=== PATIENT | female | born 2000 | race Caucasian/White ===

== ENCOUNTER 2020-09-20 02:34 | Outpatient (CLI) | payer OTHER, SELFPAY ==
[2020-09-20 19:16] LABS: SARS-CoV-2 RNA PCR Negative
== END 2020-09-20 02:35 | disposition home or self-care (01) ==
LOC: ANHCOVIDDT 02:34
PROVIDERS: Visit Provider Surgery Plastic and Reconstructive Surgery
DX: Z01.818 Encounter for other preprocedural examination (principal); Z20.828 Contact with and (suspected) exposure to other viral communicable diseases; N64.82 Hypoplasia of breast
CPT/HCPCS: 87635; C9803; U0003

== ENCOUNTER 2020-09-23 07:18 | Day surgery (SDC) | payer OTHER, SELFPAY ==
[2020-09-12 11:50] VITALS: BMI 21.7
[2020-09-23 07:33] VITALS: BMI 20.9
[2020-09-23 07:44] VITALS: BP 108/66; PULSE 64; RESP 16; TEMP 37.1; O2SAT 99
--- NOTE | 2020-09-23 07:49 | WPDANESEPPF ---
Anes - Initial Pre Proc Eval Procedure: Operation Date: 09/23/20 09:00 Proposed Procedures p Bilateral Breast Augmentation Mammoplasty - Ever Croft MD Date/Time: 09/23/20 07:49 Surgeon: Ever Croft MD Pre Op Diagnosis: Micromastia Patient Data Age: 19 Gender: F Height: 5 ft 8 in Weight: 62.45 kg Allergies Allergy/AdvReac Type Severity Reaction Status Date / Time No Known Allergies Allergy Verified 09/23/20 07:31 Home Medications Medication Instructions Recorded Confirmed Type docusate sodium 100 mg capsule 100 mg PO DAILY #14 cap 09/12/20 Rx ondansetron HCl 4 mg tablet 4 mg PO Q8H #28 tablet 09/12/20 Rx carisoprodol 350 mg tablet 350 mg PO TID PRN #21 tablet 09/13/20 09/13/20 Rx oxycodone-acetaminophen 5 mg-325 1 tablet PO Q6H PRN #15 tablet 09/13/20 09/13/20 Rx mg tablet Patient hx anesthesia problems: none Family hx anesthesia problems: none PMFSH Social History Social History Smoking status: Current every day smoker Tobacco type: e-cigarettes/vaping Second hand tobacco smoke exposure: No Alcohol intake: current Alcohol use details: socially every weekend Substance use: never Substance use type: does not use Living arrangements: with family Spiritual care concerns: No Anes - Eval Final PreProcedure Day of Procedure 09/23/20 07:49 Patient weight: normal Heart: regular rate and rhythm Lungs: clear to auscultation Airway: Mallampati scale class 1 Neurological: alert and oriented Last oral intake: >/= 8 hours ASA classification: II Emergent: no Anesthetic plan: proceed Anesthesia type and monitoring: general LMA and standard monitoring Informed Consent: The patient's anesthetic plan and its attendant risks and benefits were discussed with the patient/family/POA. Questions were solicited and answers provided to the satisfaction of the patient/family/POA.
--- NOTE | 2020-09-23 08:09 | WPDHPUPDATE1 ---
History and Physical Update Update Date/Time: 09/23/20 08:09 History and Physical has been reviewed, including an updated exam of the patient. There are NO changes in the patient's condition. Risks, benefits, and alternatives have been discussed and questions answered. Patient agrees to proceed with procedure.
[2020-09-23] MEDS: LACTATED RINGERS 1,000 ML 30 ML IV CONT ×2 (08:10→09:25)
[2020-09-23] MEDS: SCOPOLAMINE 1.5 MG PATCH TRANSDERM (08:11)
--- NOTE | 2020-09-23 08:15 | PM.PROC ---
Procedure Note - Detailed Date of procedure: 09/23/20 Pre-op diagnosis: Micromastia Post-op diagnosis: same Procedure performed: Bilateral augmentation mammaplasty Description of procedure: She is here today for bilateral breast augmentation. Previously and again today the risks, benefits, alternatives were discussed in extensive detail. I wanted her to be very realistic about the risks involved as well as expectations. We discussed aftercare and what to monitor for. Made sure answered all of her questions to her satisfaction today and consent was obtained. Marked in the preoperative holding area with their verification. The patient was taken to the operating room placed supine on the operating table. Anesthesia was provided by anesthesiology. A surgical time-out was taken. We cleansed the skin and 1% lidocaine and 0.25% Marcaine with epinephrine was used anesthetize as a field block. She was prepped and draped in a standard sterile fashion. Tegaderm nipple Roy were placed. A 15 blade used to make an incision along the inframammary fold. Dissection was continued at 45 degree angle until the chest wall as identified. I incised the pectoralis major along its inferior border and completely released the inferior border leaving the medial border intact. I created a subpectoral pocket in the appropriate dimensions based on our preoperative planning for the implant. I then copiously irrigated with saline solution and verified a strict hemostasis. Next the use a triple antibiotic and Betadine containing solution to irrigate the pocket. I washed my gloves with the triple antibiotic and Betadine solution. We washed the implant immediately upon opening it with this solution and only opened it when we needed it. I used implant funnel and no-touch technique. The implant was introduced into the pocket using the funnel. Having verified positioning of the implant this was closed using 2-0 Vicryl followed by 3-0 Monocryl in a running subcuticular 4-0 Monocryl followed by tissue glue. Fluffs, Mikal wrap, and surgical bra were placed. Patient was awoke and taken to PACU without difficulty. All instrument sponge counts were correct at the end of the case. Anesthesia: GLMA Surgeon: Ever Croft MD Estimated blood loss (mL): 10 Drains: No Packing: No Pathology: none sent Complications: No immediate complications Condition: stable Disposition: PACU Findings: Bilateral Annleise Cardonaira SoftTouch Dual Plane 1 Right REF [facility]-330 SN [id number] Left REF [facility]-330 SN [id number]
[2020-09-23] MEDS: ceFAZolin SODIUM 2 GM/20 ML SW SYRINGE IV PUSH (08:24)
[2020-09-23] MEDS: LIDO 1%/EPINEPHRINE 1:100,000 20 ML VIAL INFILTRATE (08:46)
[2020-09-23 09:27] VITALS: BP 150/95; PULSE 98; RESP 21; TEMP 36.2; O2SAT 100
[2020-09-23 09:41] VITALS: BP 121/85; PULSE 80; RESP 16; O2SAT 100
[2020-09-23] MEDS: fentaNYL CITRATE INJ (*CRX) 100 MCG/2 ML VIAL 25 MCG IV PUSH (09:50)
[2020-09-23 09:54] VITALS: BP 126/89; PULSE 86; RESP 18; O2SAT 100
[2020-09-23 10:05] VITALS: BP 117/103; PULSE 65; RESP 12; O2SAT 100
--- NOTE | 2020-09-23 10:11 | WPDANESPN ---
Anes - Prog Note Post-Op Date/Time: 09/23/20 10:11 Cardiovascular status: normal Respiratory status: normal Airway patency: baseline Mental status: baseline Post-Op hydration status: normal Vital Signs: Last Vital Signs Temp 36.2 C L 09/23/20 09:27 Pulse 65 09/23/20 10:05 Resp 12 09/23/20 10:05 BP 117/103 H 09/23/20 10:05 Pulse Ox 100 09/23/20 10:05 Pain Score (VAS): 3/10 Post-procedural complaints: none Patient Feedback: Patient awake, alert, verbalizes well, tolerating PO, VSS, describes soreness but not pain. She is satisfied with anesthetic care.
[2020-09-23 10:19] VITALS: BP 112/85; PULSE 62; RESP 18; TEMP 36.4; O2SAT 98
== END 2020-09-23 10:40 | disposition home or self-care (01) ==
PROVIDERS: Visit Provider Surgery Plastic and Reconstructive Surgery
PROC: (CPT 19325; principal; 2020-09-23 09:00)
DX: N64.82 Hypoplasia of breast (principal)
CPT/HCPCS: 19325

== ENCOUNTER 2023-01-10 18:29 | Emergency (ER) | payer OTHER, BC, SELFPAY ==
--- NOTE | 2023-01-10 19:19 | ED.FALL ---
HPI - Fall General Chief Complaint: Fall Stated Complaint: fall,cheek bone,knee and jenkins pain Time Seen by Provider: 01/10/23 19:15 Source: patient Mode of arrival: ambulatory Limitations: no limitations History of Present Illness HPI Narrative: Dahlia is a 22-year-old female patient presenting to the clinic today with complaints of a fall at work yesterday. She reports that she slipped on some water and her head hit a car. She denies any loss of consciousness. She denies any neck pain or back pain. Has bruising to her right cheek bone, left lower jenkins, and bilateral knees. States she had a small cut to her right cheek however this has resolved Related Data Home Medications Medication Instructions Recorded Confirmed levonorgestrel 21 mcg/24 hours (8 See Rx Instructions .Route .COMPLEX 01/10/23 01/10/23 yrs) 52 mg intrauterine device (Mirena) Allergies Allergy/AdvReac Type Severity Reaction Status Date / Time No Known Allergies Allergy Verified 01/10/23 19:15 Review of Systems Review of Systems: Pertinent positives per HPI. Patient denies any fever, chills, rash, headache, visual changes, dizziness, cough, runny nose, sore throat, shortness of breath, chest pain, palpitations, nausea, vomiting, diarrhea, constipation, abdominal pain, or any urinary issues. [facility] Social History Social History Smoking status: Current every day smoker Tobacco type: e-cigarettes/vaping Second hand tobacco smoke exposure: No Alcohol intake: current Alcohol use details: socially every weekend Substance use: never Substance use type: does not use Living arrangements: with family Spiritual care concerns: No Comments At the time of my signature, I reviewed and agree with the nursing past medical, surgical, social, and family history. There is no relevant family history pertinent to the patient complaint. Exam Narrative: General: Well-developed, well nourished, in no apparent distress Head: Normocephalic, atraumatic. Cardio: Regular rate and rhythm, s1 and s2 normal, no murmur appreciated. Resp: Clear to auscultation bilaterally, no rhonchi, rales, wheezing or rubs. Musculoskeletal: No deformity, tender to palpation over the right cheek bone, left lower jenkins, and bilateral knees, grossly normal range of motion, muscle strength strong and equal, peripheral pulse strong, no edema, no cyanosis, normal gait and station Course Course Emergency Course: Portions of this record may have been created with voice recognition software. Level of Care: Express Care Visit Vital Signs Vital signs: Vital signs reviewed MDM - Fall MDM Narrative Medical decision making narrative: At the time of visit patient is resting comfortably on the exam table. Explained to the patient that a facial x-ray will not show was much and recommend a CT of her facial bones however she declines this at this time. States she is needing a work note to return to work on SaturdayJanuary 15. Supportive measures were discussed with the patient she voiced understanding discharge instructions and agrees to treatment plan. Differential Diagnosis Differential diagnosis: Likely concussion with loss of consciousness, concussion without loss of consciousness and other (Slip fall, contusions, whiplash, fractured cheek bone) Discharge Plan Discharge Clinical Impression: Contusion of face, Contusion of knee, Contusion of left lower leg Patient Disposition: Home, Self-Care Condition: Stable Instructions: Antibiotic Form, Contusion in Adults (ED), Knee Pain (ED), Facial Contusion (ED) Additional Instructions: May take Tylenol/ibuprofen as needed for pain May apply ice pack to the affected area for 20 minutes at a time every 2-3 hours May return to work on Sunday January 15, 2023 Follow-up with your PCP as needed Prescriptions: No Action Mirena 21 mcg/24 hours (8 yrs) 52 mg
[2023-01-10 19:23] VITALS: BP 98/60; PULSE 80; RESP 18; TEMP 36.8; O2SAT 100
== END 2023-01-10 19:26 | disposition home or self-care (01) ==
PROVIDERS: Emergency Provider Nurse Practitioner Family
DX: S00.83XA Contusion of other part of head, initial encounter (principal); S80.02XA Contusion of left knee, initial encounter; S80.01XA Contusion of right knee, initial encounter; S80.12XA Contusion of left lower leg, initial encounter; W01.0XXA Fall on same level from slipping, tripping and stumbling without subsequent striking against object, initial encounter; F17.290 Nicotine dependence, other tobacco product, uncomplicated
CPT/HCPCS: 99212; G0463